=== PATIENT | male | born 1995 | race African-American/Black ===

== ENCOUNTER 2021-12-01 20:47 | Emergency (ER) ==
[2021-12-02] MEDS ORDERED: Acetaminophen 500 MG TAB ONE (02:30)
[2021-12-02 11:56] LABS: SARS-CoV-2 PCR by NAA Not Detected (NotDetected)
== END 2021-12-02 02:38 | disposition home or self-care (01) ==
LOC: ERS 20:47
DX: B34.9 Viral infection, unspecified (principal); Z20.822 Contact with and (suspected) exposure to COVID-19
CPT/HCPCS: 71045; 87804; 99285; U0003; U0005